=== PATIENT | male | born 1970 | race Caucasian/White ===

== ENCOUNTER 2018-04-17 17:32 | Emergency (ER) | payer MEDICAID, OTHER ==
[~2018-04-17] VITALS: Ht 175.3 cm; Wt 96.9 kg
[2018-04-17 17:36] VITALS: BP 122/60; RESP 18; Ht 175.3 cm; Wt 96.9 kg
[2018-04-17] MEDS ORDERED: ALBUTEROL 0.083% (NEB) 2.5 MG/3 ML AMP NEB STA (20:34)
[2018-04-17] MEDS ORDERED: DEXAMETHASONE 10 MG/ML 1 ML INJ PO STA (20:34)
[2018-04-17] MEDS ORDERED: ACETAMINOPHEN 500 MG TAB PO STA (20:34)
[2018-04-17] MEDS ORDERED: IPRATROPIUM (NEB) 0.5 MG/2.5 ML AMP NEB STA (20:34)
--- NOTE | 2018-04-17 20:52 | ERD ---
ER Documentation Chief Complaint Chief Complaint Lower back pain X 3 months, worse past 1 wk 9/10 pain, nausea, fever HPI Patient is a 47-year-old male who presents with 3 days of cough and fever. While the triage note states is here for low back pain he states that is chronic and what is really here for is because he has had cough and fever for the past 2 days. He took some Tylenol yesterday but none today. No vomiting. His symptoms are worse at night and makes it difficult for him to sleep. He has no dysuria hematuria or frequency. No flank pain. ROS All systems reviewed and are negative except as per history of present illness. Allergies Allergies: Coded Allergies: No Known Allergy (Unverified , 05/13/13) PMhx/Soc Medical and Surgical Hx: pt denies Medical Hx, pt denies Surgical Hx Hx Alcohol Use: No Hx Substance Use: No Hx Tobacco Use: No Smoking Status: Never smoker FmHx Family History: No diabetes Physical Exam Vitals Vital Signs Date Temp Pulse Resp B/P (MAP) Pulse Ox O2 O2 Flow FiO2 Time Delivery Rate 04/17/18 101.2 93 18 122/60 96 17:36 (80) Physical Exam INITIAL VITAL SIGNS: Reviewed by me GENERAL: Awake, alert and oriented x 4, well appearing, nontoxic, speaking in full sentences. No acute distress HEAD: Atraumatic NECK: Supple. No masses. Full range of motion. No meningismus. No midline tenderness. EYES: EOMI. PERRL. RESPIRATORY: Clear to auscultation bilaterally. Symmetric chest wall rise. No wheezing or rales. No accessory muscle use. CV: Regular rate and rhythm. No murmurs, rubs, or gallops. ABDOMEN: Soft, non-distended. Nontender. Negative [place]. Negative [place] point tenderness. No CVA tenderness bilaterally. No guarding. No rebound. Results 24 hrs Current Medications Medications Dose Sig/Shaheen Start Time Status Last (Trade) Ordered Route PRN Stop Time Admin Dose Reason Admin Albuterol 5 mg ONCE STAT 04/17/18 DC 04/17/18 (Proventil NEB 20:34 04/17/18 20:46 0.083% (Neb)) 20:36 Ipratropium 0.5 mg ONCE STAT 04/17/18 DC 04/17/18 [place] NEB 20:34 04/17/18 20:46 (Atrovent 20:36 0.02% (Neb)) 10 mg ONCE STAT 04/17/18 DC 04/17/18 Dexamethasone PO 20:34 04/17/18 20:41 (Decadron) 20:36 1,000 mg ONCE STAT 04/17/18 DC 04/17/18 Acetaminophen PO 20:34 04/17/18 20:42 (Tylenol 20:36 Tab) Procedures/MDM This 47-year-old is here for cough and fever. He does have a fever. He was given Tylenol. He likely has viral illness. He was given Decadron and a breathing treatment here. I have a low suspicion for pneumonia. Likely viral versus bronchitis. He felt better after the breathing treatment. He was discharged with cough suppressant and a Z-[place]. Patient counseled regarding my diagnostic impression and care plan. Prior to discharge all questions answered. Pt agrees with treatment plan and understands strict return precautions. Pt is instructed to follow up with primary care provider within 24-48 hours. Precautionary instructions provided including instructions to return to the ER if not improving or for any worsening or changing symptoms or concerns. Departure Diagnosis: Primary Impression: Bronchitis Condition: Stable LUCIO MASTERS PA-C Apr 17, 2018 20:52
[2018-04-17] MEDS ORDERED: PROM5SYR2 PO (20:53)
[2018-04-17] MEDS ORDERED: TYL500 PO (20:53)
[2018-04-17] MEDS ORDERED: IBUP800T48 PO (20:53)
[2018-04-17] MEDS ORDERED: AZIT250T PO (20:53)
[2018-04-17 21:22] VITALS: PULSE 100
== END 2018-04-17 21:20 | disposition home or self-care (01) ==
LOC: FTE 17:32
DX: J40 Bronchitis, not specified as acute or chronic (principal)
CPT/HCPCS: 94664; J1100; Z7502; Z7610

== ENCOUNTER 2018-04-24 16:19 | Emergency (ER) | payer MEDICAID ==
[~2018-04-24] VITALS: Ht 175.3 cm; Wt 92.0 kg
[~2018-04-24 16:19] MED LIST: AZIT250T PO; IBUP800T48 PO; PROM5SYR2 PO; TYL500 PO
[2018-04-24 16:25] VITALS: Ht 175.3 cm; Wt 92.0 kg
[2018-04-24] MEDS ORDERED: KETOROLAC 30 MG INJ IM STA (20:50)
--- NOTE | 2018-04-24 20:50 | ERD ---
ER Documentation Chief Complaint Chief Complaint BACK PAIN X 15 DAYS HPI This is a 47-year-old male who presents emergency department with complaints of lower back pain that started 15 days ago. Patient stated that this actually started after lifting a heavy object. Complains pain on range of motion. Denies headache, head injury, blurry vision, dizziness, neck pain, neck stiffness, throat pain, difficulty swallowing, chest pain, difficulty breathing when lying flat, abdominal pain, nausea, vomiting, constipation, diarrhea, urinary symptoms, difficulty walking, loss of bowel or bladder control, trauma, injury, falls, numbness or tingling sensation, recent surgery in the last three weeks, recent travel, recent exposure to illness, recent antibiotic use in the last three months, fever, chills, seizures. ROS All systems reviewed and are negative except as per history of present illness. Medications Home Meds Active Scripts Metaxalone* (Skelaxin*) 800 Mg Tablet, 800 MG PO TID PRN for MUSCLE SPASMS, #15 TAB Prov:JAMES NICOLE F 04/24/18 Ibuprofen* (Motrin*) 800 Mg Tab, 800 MG PO Q6H PRN for PAIN AND OR ELEVATED TEMP, #30 TAB Prov:JAMES NICOLE F 04/24/18 Promethazine HCl/Codeine (Prometh-Codein 6.25-10 mg/5 ml) 5 Ml Syrup, 5 ML PO Q8, #120 ML Prov:LUCIO MASTERS PA-C 04/17/18 Acetaminophen* (Tylenol*) 500 Mg Tab, 1000 MG PO Q4H PRN for PAIN AND OR ELEVATED TEMP, #30 TAB Prov:LUCIO MASTERS PA-C 04/17/18 Ibuprofen* (Motrin*) 800 Mg Tab, 800 MG PO Q6, #30 TAB Prov:LUCIO MASTERS PA-C 04/17/18 Azithromycin* (Zithromax*) 250 Mg Tablet, 250 MG PO .NikolasPACK DIRECTED, #6 TAB TAKE 500 MG (2 TABS) THE FIRST DAY THEN 250 MG (1 TAB) DAYS 2-5 Prov:LUCIO MSATERS PA-C 04/17/18 Allergies Allergies: Coded Allergies: No Known Allergy (Unverified , 05/13/13) PMhx/Soc Medical and Surgical Hx: pt denies Medical Hx, pt denies Surgical Hx History of Surgery: No Anesthesia Reaction: No Hx Neurological Disorder: No Hx Respiratory Disorders: No Hx Cardiac Disorders: No Hx Psychiatric Problems: No Hx Miscellaneous Medical Probl: No Hx Alcohol Use: No Hx Substance Use: No Hx Tobacco Use: No Physical Exam Vitals Physical Exam Const: No acute distress Head: Atraumatic Eyes: Normal Conjunctiva ENT: Normal External Ears, Nose and Mouth. Neck: Full range of motion. No meningismus. Resp: Clear to auscultation bilaterally Cardio: Regular rate and rhythm, no murmurs Abd: Soft, non tender, non distended. Normal bowel sounds Skin: No petechiae or rashes Back: L-spine is in midline with no swelling/swelling/point of tenderness but has pain to range of motion. C-spine/T-spine are midline with good and full range of motion and is no swelling/bulging/point of tenderness. Bilateral hips are stable and unremarkable. Positive straight leg test bilaterally. No neurovascular deficits. Ambulatory with steady gait. Ext: No cyanosis, or edema Neur: Awake and alert. No neurological deficits. Psych: Normal Mood and Affect Results 24 hrs Current Medications Medications Dose Sig/Shaheen Start Time Status Last (Trade) Ordered Route PRN Stop Time Admin Dose Reason Admin Ketorolac 30 mg ONCE STAT 04/24/18 DC 04/24/18 Tromethamine IM 20:50 20:56 (Toradol) 04/24/18 20:52 1 tab ONCE ONCE 04/24/18 DC 04/24/18 Acetaminophen PO 21:00 20:55 / 04/24/18 21:01 Hydrocodone Bitart ([place] (10/325)) Procedures/MDM Diagnostic tests: X-ray of L-spine: Mild levoscoliosis. Otherwise unremarkable. Treatment: Toradol IM. [place] p.o. Re-evaluation: Denies chest pain, back pain, abdominal pain. No episode of measures in emergency department. No neurovascular deficits. Ambulatory with steady gait. Differential diagnosis I have low suspicion for AAA, cauda equina syndrome, nephrolithiasis, pyelonephritis, sepsis, hydronephrosis, kidney stones, obstructing kidney stones. Final diagnosis: Sciatica. Back pain. Prescription: Motrin. Skelaxin. Follow-up with PCP in the next 24-48 hours. Come back here in the emergency department for any new symptoms or any worsening symptoms. All questions and concerns were answered. Patient and family members verbalized understanding and agreed with plan of care. Hemodynamically stable on discharge. Departure Diagnosis: Primary Impression: Back pain Additional Impression: Sciatica Condition: Stable Additional Instructions: Follow-up with PCP in the next 24-48 hours. Come back here in the emergency department for any new symptoms or any worsening symptoms. JAMES NICOLE Apr 24, 2018 20:50
[2018-04-24] MEDS ORDERED: HYDROCODONE/APAP (10/325) TAB PO ONE (21:00)
[2018-04-24] MEDS ORDERED: META-121 PO (22:13)
[2018-04-24] MEDS ORDERED: IBUP800T48 PO (22:13)
[2018-04-24 22:23] VITALS: BP 130/71; PULSE 79; RESP 18
== END 2018-04-24 22:24 | disposition home or self-care (01) ==
LOC: FTE 16:19
DX: M54.40 Lumbago with sciatica, unspecified side (principal)
CPT/HCPCS: 72100; 96372; J1885; Z7502; Z7610